=== PATIENT | female | born 1970 | race Caucasian/White ===

== ENCOUNTER 2021-02-20 18:29 | Emergency (ER) | payer BC, SELFPAY ==
[2021-02-20 18:39] VITALS: BP 141/85; PULSE 91; RESP 14; TEMP 36.6; O2SAT 100; BMI 27.4
--- NOTE | 2021-02-20 18:47 | XR_ITS ---
PROCEDURE INFORMATION: Exam: XR Left Ankle Exam date and time: 02/20/2021 6:47 PM Age: 50 years old Clinical indication: Left; Patient HX: Lateral foot and ankle pain after twisting ankle yesterday TECHNIQUE: Imaging protocol: XR Left ankle. Views: 3 or more views. COMPARISON: No relevant prior studies available. FINDINGS: Bones/joints: Again seen is the previously described fracture of the base of the 5th metatarsal. No other fracture or dislocation is seen. Soft tissues: Normal. IMPRESSION: Again seen is the previously described fracture of the base of the 5th metatarsal. No other fracture or dislocation is seen.
--- NOTE | 2021-02-20 18:47 | XR_ITS ---
PROCEDURE INFORMATION: Exam: XR Left Foot Exam date and time: 02/20/2021 6:47 PM Age: 50 years old Clinical indication: Left; Patient HX: Lateral foot and ankle pain after twisting ankle yesterday TECHNIQUE: Imaging protocol: XR Left foot. Views: 3 or more views. COMPARISON: No relevant prior studies available. FINDINGS: Bones/joints: There is a fracture at the base of the 5th metatarsal which is relatively nondisplaced. No other evidence of fracture dislocation or discrete bony destruction is seen. Soft tissues: Soft tissues are unremarkable. IMPRESSION: There is a fracture at the base of the 5th metatarsal which is relatively nondisplaced. No other evidence of fracture dislocation or discrete bony destruction is seen.
--- NOTE | 2021-02-20 19:31 | HMH.EDUTC ---
[facility] Disposition Clinical Impression: Foot fracture, left Qualifiers: Encounter type: initial encounter Fracture type: closed Qualified Code(s): S92.902A - Unspecified fracture of left foot, initial encounter for closed fracture Disposition: Home, Self-Care Condition on Discharge: Good Instructions: DI for Foot Fracture Additional Instructions: Rest the extremity, apply ice for 15 minutes as tolerated three or four times per day, Elevate the extremity as tolerated while you are resting. Take ibuprofen for pain. I sent in a prescription to your pharmacy. Follow up with Dr. Mast (podiatry). I put in a referral but you need to call her office and schedule an appointment. Follow up with your regular doctor. GO TO THE ER FOR ANY WORSENING SYMPTOMS Prescriptions: Ibuprofen [Ibuprofen 600mg Tablet] 600 mg PO Q6HP PRN #30 tab PRN Reason: Mild Pain Transmission Status: Received by [facility] Referrals: Shailesh Shook DO [Primary Care Provider] - Graciela Mast DPM [Staff Physician] - Forms: Work/School Release Time of Disposition: 19:43 Medical Decision Making - Medical Records Medical records reviewed: No: I reviewed the patient's medical records. - Sundar Inquiry Pt receiving controlled substance: No Vital Signs: 02/20/21 18:39 02/20/21 19:33 Temperature 97.9 F 98 F Temperature Source Tympanic Pulse Rate 85 Pulse Rate [Right] 91 H Respiratory Rate 14 16 Blood Pressure 139/82 Blood Pressure [Right Arm] 141/85 H Blood Pressure Mean [Right Arm] 103 02 Sat by Pulse Oximetry 100 - Radiology Data #1 Image(s): Foot/Toes Image Reviewed: Yes I reviewed the patient's radiology results, Yes I discussed the image results w/the radiologist Preliminary Findings: Abnormal PROCEDURE INFORMATION: Exam: XR Left Foot Exam date and time: 02/20/2021 6:47 PM Age: 50 years old Clinical indication: Left; Patient HX: Lateral foot and ankle pain after twisting ankle yesterday TECHNIQUE: Imaging protocol: XR Left foot. Views: 3 or more views. COMPARISON: No relevant prior studies available. FINDINGS: Bones/joints: There is a fracture at the base of the 5th metatarsal which is relatively nondisplaced. No other evidence of fracture dislocation or discrete bony destruction is seen. Soft tissues: Soft tissues are unremarkable. IMPRESSION: There is a fracture at the base of the 5th metatarsal which is relatively nondisplaced. No other evidence of fracture dislocation or discrete bony destruction is seen. [facility] HPI - General Stated complaint: AO fall injured L foot Time Seen by Provider: 02/20/21 19:38 Mode of Arrival: Ambulatory Source of Information: Patient Limitations: No Limitations Description of Symptoms (Recalled from Triage Doc. by RN): pt twisted her L ankle. she now has L foot bruising and swelling with pain 03/27 HEENT Symptoms (Recalled from RN notes): No Resp Symptoms (Recalled from RN notes): No Skin Symptoms (Recalled from RN notes): No MS Symptoms (Recalled from RN notes): Yes (L foot pain) Functional Status (Recalled from RN notes): na - History of Present Illness Provider Complaint: She states that yesterday she twisted her left foot and ankle. Since then she has had left foot pain. The pain is much worse with bearing weight and walking. - Related Data Previous Rx's Medication Instructions Recorded Ibuprofen [Ibuprofen 600mg 600 mg PO Q6HP PRN #30 tab 02/20/21 Tablet] Allergies Allergy/AdvReac Type Severity Reaction Status Date / Time No Known Allergies Allergy Verified 02/20/21 18:46 - Worker's Comp Is this a Worker's Comp case?: No [facility] History - Hepatitis A Screen Drug use history?: No High risk sexual behaviors?: No History of sexually transmitted infection?: No Currently employed?: No Childcare worker?: No Do you have
[2021-02-20 19:33] VITALS: BP 139/82; PULSE 85; RESP 16; TEMP 36.6
== END 2021-02-20 19:55 | disposition home or self-care (01) ==
PROVIDERS: Emergency Provider Nurse Practitioner Family; PCP Family Medicine
DX: S92.902A Unspecified fracture of left foot, initial encounter for closed fracture (principal); W01.0XXA Fall on same level from slipping, tripping and stumbling without subsequent striking against object, initial encounter
CPT/HCPCS: 29515; 73610; 73630; 99202; G0463

== ENCOUNTER → 2021-03-15 11:25 | Outpatient (CLI) | payer BC, SELFPAY ==
--- NOTE | 2021-03-15 11:29 | XR_ITS ---
PROCEDURE: XR FOOT WT BEARING LT 3V CLINICAL INDICATION: fracture follow up COMPARISON: CR XR FOOT LT MIN 3V from 02/20/2021 FINDINGS: Nondisplaced fracture once again noted at the base of the 5th metatarsal with extension into the articular surface proximally. Fracture line is somewhat more prominent with minimal distraction of the proximal fracture fragment by approximately 2 mm. Good alignment. IMPRESSION: Nondisplaced fracture base of 5th metatarsal as described above. Dictated by: Issa Lewis MD 03/15/2021 11:57 Issa Lewis MD in [place] 03/15/2021 11:57
== END ==
PROVIDERS: PCP Family Medicine; Visit Provider Podiatrist
DX: T14.8XXA Other injury of unspecified body region, initial encounter (principal)
CPT/HCPCS: 73630

== ENCOUNTER → 2021-04-15 10:56 | Outpatient (CLI) | payer BC, SELFPAY ==
--- NOTE | 2021-04-15 11:00 | XR_ITS ---
PROCEDURE: XR FOOT WT BEARING LT 3V CLINICAL INDICATION: foot pain COMPARISON: CR XR FOOT LT MIN 3V from 02/20/2021 CR XR FOOT WT BEARING LT 3V from 03/15/2021 FINDINGS: Nondisplaced transverse fracture involves the base of the 5th metatarsal. Fracture line is somewhat less distinct consistent with healing. Fracture does extend into the proximal articular surface of the 5th metatarsal. The joint spaces are well-preserved. No significant degenerative/arthritic changes. No erosive changes evident. Other findings:None. IMPRESSION: Healing fracture base of 5th metatarsal Dictated by: Issa Lewis MD 04/15/2021 13:06 Issa Lewis MD in [place] 04/15/2021 13:06
== END ==
PROVIDERS: PCP Family Medicine; Visit Provider Podiatrist
DX: T14.8XXA Other injury of unspecified body region, initial encounter (principal); S92.355D Nondisplaced fracture of fifth metatarsal bone, left foot, subsequent encounter for fracture with routine healing
CPT/HCPCS: 73630

== ENCOUNTER → 2021-06-03 08:57 | Outpatient (CLI) | payer BC, SELFPAY ==
--- NOTE | 2021-06-03 09:00 | XR_ITS ---
PROCEDURE: XR FOOT WT BEARING LT 3V CLINICAL INDICATION: fracture follow up COMPARISON: CR XR FOOT LT MIN 3V from 02/20/2021 CR XR FOOT WT BEARING LT 3V from 03/15/2021 CR XR FOOT WT BEARING LT 3V from 04/15/2021 FINDINGS: Healing fractures present at the base of the 5th metatarsal. There is good alignment. Fracture line is much less visible The joint spaces are well-preserved. No significant degenerative/arthritic changes. No erosive changes evident. Other findings:None. IMPRESSION: Healing 5th metatarsal fracture Dictated by: Issa Lewis MD 06/03/2021 15:15 Issa Lewis MD in [place] 06/03/2021 15:15
== END ==
PROVIDERS: PCP Family Medicine; Visit Provider Podiatrist
DX: S92.355D Nondisplaced fracture of fifth metatarsal bone, left foot, subsequent encounter for fracture with routine healing (principal); S99.922D Unspecified injury of left foot, subsequent encounter; T14.8XXA Other injury of unspecified body region, initial encounter
CPT/HCPCS: 73630